=== PATIENT | female | born 1975 | race Caucasian/White ===

== ENCOUNTER → 2016-06-06 | Outpatient (CLI) | payer BC ==
--- NOTE | 2016-06-06 15:51 | RAD ---
Exam performed: Right upper quadrant ultrasound. History: Nausea vomiting and diarrhea for several months with recent worsening. Date of service: 06/06/16. Comparison: None available Technique: Real-time grayscale imaging of the right upper abdomen is performed and images are obtained. Findings: The liver demonstrates diffuse hepatic steatosis and measures 18.2 cm in length. There is mild intrahepatic biliary ductal dilatation. The common bile duct measures 8.0 mm. Gallbladder appears somewhat contracted despite patient being nothing by mouth. There is no cholelithiasis. Echogenic non-shadowing foci are seen in the gallbladder probably polyps. There is biliary sludge. No pericholecystic fluid or gallbladder wall thickening seen. Sonographic Montano sign is present. The right kidney measures 9.9 x 5.6 x 4.7 cm. There is no hydronephrosis or nephrolithiasis. Suboptimal evaluation of the pancreas due to overlying bowel gas. The visualized IVC appears normal. Impression: Gallbladder polyp with sludge and positive sonographic Montano's sign. Findings may be related to acute cholecystitis. Diffuse hepatic steatosis with mild dilation of the common bile duct. A distal obstructing calculus is not excluded.
== END | disposition home or self-care (01) ==
LOC: US 14:26
PROVIDERS: ATTEND Obstetrics & Gynecology
DX: R10.11 Right upper quadrant pain (principal); R11.2 Nausea with vomiting, unspecified; R19.7 Diarrhea, unspecified
CPT/HCPCS: 76705

== ENCOUNTER 2016-06-12 09:32 | Day surgery (SDC) | payer BC ==
[~2016-06-12] VITALS: Ht 162.6 cm; Wt 106.1 kg
[~2016-06-12 09:32] MED LIST: CEFAZOLIN 2GM PREMIX 50 ML IV PRN; FENTANYL PF 100 MCG/2 ML VIAL. IV PRN; HYDR-2762 PO; HYDROMORPHONE 2 MG/ML VIAL. IV PRN; IRON28TA2 PO; IV RINGERS,LACTATED 1000ML 1,000 ML IV SCH; LIDOCAINE 1% 1 ML SYRINGE. ID PRN; ONDANSETRON PF 4 MG/2 ML VIAL. IV PRN; PROCHLORPERAZINE 10 MG/2 ML VIAL. IV PRN; ROPI1TAB PO
[2016-06-12 10:01] LABS: NEG OBC UR NEG; POS OBC UR POS
[2016-06-12 10:35] LABS: BASO # 0.1 x10^3/uL (0.0-0.2); BASO % 1 % (0-3); EOS % 2 % (0-3); HEMATOCRIT 37.4 % (36.0-47.0); LYMPH # 2.5 x10^3/uL (1.0-4.8); LYMPH % 29 % (24-48); MEAN CORPUSCULAR HEMOGLOBIN 25 pg (25-35); MEAN CORPUSCULAR HGB CONC 32 g/dL (31-37); MEAN CORPUSCULAR VOLUME 77 fL (79-100); MONO % 6 % (0-9); NEUT % 63 % (31-73); PLATELET COUNT 258 x10^3/uL (140-400); RED BLOOD COUNT 4.86 x10^6/uL (3.50-5.40); RED CELL DISTRIBUTION WIDTH 15.8 % (11.5-14.5); WHITE BLOOD COUNT 8.5 x10^3/uL (4.0-11.0)
[2016-06-12 10:43] LABS: CALCIUM 9.1 mg/dL (8.5-10.1); CREATININE 0.7 mg/dL (0.6-1.0); GFR 93.2; POTASSIUM 3.9 mmol/L (3.5-5.1)
[2016-06-12 10:49] LABS: ALBUMIN 3.6 g/dL (3.4-5.0); ALBUMIN/GLOBULIN RATIO 0.9 (1.0-1.7); TOTAL BILIRUBIN 0.4 mg/dL (0.2-1.0); TOTAL PROTEIN 7.5 g/dL (6.4-8.2)
[2016-06-12] MEDS ORDERED: IOHEXOL 300 MG/ML 50 ML VIAL. ONE (11:19)
[2016-06-12] MEDS ORDERED: BUPIVAC MPF-EPI 0.5%-1:200000 30 ML VIAL. ONE (11:19)
[2016-06-12] MEDS ORDERED: MIDAZOLAM HCL 2 MG/2 ML VIAL. ONE (11:27)
[2016-06-12] MEDS ORDERED: FENTANYL PF 250 MCG/5 ML VIAL. ONE (11:27)
[2016-06-12] MEDS ORDERED: ROCURONIUM 50 MG/5 ML VIAL. ONE (11:28)
--- NOTE | 2016-06-12 12:24 | RAD ---
EXAM: Intraoperative cholangiogram. HISTORY: Intraoperative cholangiogram. COMPARISON: None. FINDINGS: 2 fluoroscopic images are obtained intraoperatively during injection of the cystic duct remnant after cholecystectomy. There are no filling defects to suggest retained stones. The common duct is not dilated. Fluoroscopy time 16 seconds. IMPRESSION: No evidence of retained stones.
[2016-06-12] MEDS ORDERED: LIDOCAINE 2% 100 MG/5 ML DISP.SYRIN. ONE (12:28)
[2016-06-12] MEDS ORDERED: DEXAMETHASONE SOD PHOS 20 MG/5 ML VIAL. ONE (12:29)
[2016-06-12] MEDS ORDERED: ONDANSETRON PF 4 MG/2 ML VIAL. ONE (12:29)
[2016-06-12] MEDS ORDERED: DESFLURANE 61 TO 120 MINUTES IH ONE (12:29)
[2016-06-12] MEDS ORDERED: DESFLURANE > 120 MINUTES IH ONE (12:29)
[2016-06-12] MEDS ORDERED: PROPOFOL 20 ML IV ONE (12:29)
[2016-06-12] MEDS ORDERED: GLYCOPYRROLATE 1 MG/5 ML VIAL. ONE (12:31)
[2016-06-12] MEDS ORDERED: NEOSTIGMINE METHYLSULFATE 5 MG/5 ML SYRINGE. ONE (12:31)
--- NOTE | 2016-06-12 12:41 | DISCH ---
DISCHARGE INSTRUCTIONS Condition on Discharge Condition on Discharge: Stable Activity After Discharge Activity Instructions for Disc: Other, see below (No lifting over 20 lbs X 2 weeks) Diet after Discharge Diet after Discharge: Regular Wound Incision Care Wound/Incision Care: Other, see below (may remove bandaids tomorrow and shower) Follow-Up Follow up with: Dr Carpenter in 2 weeks in office, call for appt [phone] RAJEEV CARPENTER MD Jun 12, 2016 12:41
--- NOTE | 2016-06-12 12:44 | PDOC4 ---
Operative Note Operative Note Operative Note: Preoperative Diagnosis: Gallbladder polyp and sludge Postoperative Diagnosis: Same Procedure: Laparoscopic cholecystectomy with intraoperative cholangiogram Surgeons: Gustavo Gang Saw Operator: JODY Green Anesthesia: Gen. Estimated Blood Loss: 10 mL Specimen: Gallbladder to pathology Drains: None Complications: None Indications: The patient is a 41-year-old female who is been experiencing recurrent upper abdominal pain. She underwent evaluation for this including a sonogram showed gallbladder sludge, a polyp, and Montano sign consistent with possible cholecystitis. Surgical treatment was offered by means of a laparoscopic cholecystectomy. The risks of surgery were discussed which include bleeding, infection, bile duct injury, bile leak, pain, the potential for additional surgeries or procedures. The patient understands and would like to proceed. Description: The patient was taken to the operating room and laid supine on the operating table. General anesthesia was performed. The abdomen was prepped with ChloraPrep and draped in a standard surgical fashion. A small supraumbilical incision was made with a scalpel. The Veress needle was then inserted and a pneumoperitoneum was then created. A 5 mm trocar was then inserted and the laparoscope was introduced. In the upper midabdomen a 5 mm trocar was inserted and in the right upper quadrant two 2.3 mm mini lap graspers were inserted. The gallbladder was retracted cephalad. The cystic duct was dissected free from surrounding tissues. One clip was placed on the duct near the gallbladder junction. An opening was made in the duct and a cholangiocatheter placed within and secured with a clip. Using contrast dye and fluoroscopy an intraoperative cholangiogram was performed that appeared unremarkable. The clip and catheter were then withdrawn. Three clips were placed on the cystic duct and it was divided. The cystic artery was then identified, dissected free, doubly clipped and divided as well. The gallbladder was then mobilized away from the liver with cautery. The umbilical 5 millimeter trocar was exchanged for an 11 millimeter trocar. The gallbladder was then placed in an endoscopic bag and extracted at the umbilical trocar site. The fascia there was closed with an 0 Vicryl suture. All blood and irrigation fluid was suctioned and hemostasis was good. The remaining ports were removed and the pneumoperitoneum was relieved. The skin incisions were injected with half percent Marcaine with epinephrine, and all were closed using 4-0 Monocryl suture. Steri-Strips and dressings were then applied. The patient tolerated the procedure well and was sent to the recovery room in stable condition. At the end of the case all counts were correct. RAJEEV CARPENTER MD Jun 12, 2016 12:44
[2016-06-12] MEDS: FENTANYL PF 100 MCG/2 ML VIAL. IV PRN ×2 (12:55→13:05)
[2016-06-12] MEDS: MORPHINE SULFATE 2 MG/ML DISP.SYRIN. IV PRN ×2 (13:15→13:25)
[2016-06-12] MEDS ORDERED: OXYC-323 PO (13:34)
[2016-06-12] MEDS ORDERED: ONDA4TAB10 SL (13:36)
[2016-06-12] MEDS ORDERED: OXYCODONE/APAP 5/325 TABLET. PO PRN (13:45)
[2016-06-12 14:19] VITALS: BP 112/65
--- NOTE | 2016-06-12 21:59 | ACF ---
Admission Forms Criteria GALLBLADDER OR BILE DUCT INFLAMMATION OR STONE Clinical Indications for Admission to Inpatient Care ( Place 'X' for any and all applicable criteria): Admission is indicated for patients with ANY ONE of the following(1)(2)(3)(4)(5) : [ ]I. Acute cholecystitis as indicated by ALL of the following: [ ]a) Right upper quadrant pain, mass, or tenderness [ ]b) Systemic signs of inflammation indicated by ANY ONE of the following: [ ]i) Fever [ ]ii) C-reactive protein level greater than 10 mg/L (95 nmol/L) [ ]iii) White blood cell count greater than 10,000/mm3 (10 x109/L) or less than 4000/mm3 (4 x109/L) [X]II. Inpatient admission required rather than observation care (Also use Gallbladder or Bile Duct Inflammation or Stone: Observation Care as appropriate) because of ANY ONE of the following: [ ]a) Common bile duct obstruction diagnosed [ ]b) Vomiting that is severe or persistent [ ]c) Severe pain requiring acute inpatient management [ ]d) Signs of intestinal obstruction or peritonitis [A] [ ]e) Severe electrolyte abnormalities requiring inpatient care [ ]f) Absent bowel sounds with complete ileus(8) [ ]g) Hemodynamic instability [ ]h) High fever or infection requiring inpatient admission as indicated by ANY ONE of the following (9): [ ]1) Appropriate outpatient or observation care antimicrobial Treatment. unavailable, not effective, or not feasible [ ]2) Temperature greater than 104.9 degrees F (40.5 degrees C) (oral) [ ]3) Temperature greater than 103.1 degrees F (39.5 degrees C) (oral) or less than 96.8 degrees F (36 degrees C) (rectal) that does not respond to all emergency treatment measures [ ]4) Documented bacteremia [ ]i) IV fluid to replace significant ongoing losses (greater than 3 L/m2 per day) [ ]j) Percutaneous or open drainage (eg, abscess, biliary tract) procedures [X]k) Immediate inpatient surgery [ ]l) Other condition, treatment or monitoring requiring inpatient admission [ ]III. Acute cholangitis as indicated by ALL of the following(9)(10): [ ]a) Systemic signs of inflammation indicated by ANY ONE of the following: [ ]i) Fever [ ]ii) C-reactive protein level greater than 10 mg/L (95 nmol /L) [ ]iii) White blood cell count greater than 10,000/mm3 (10 x109/L) or less than 4000/mm3 (4 x109/L) [ ]b) Evidence of common bile duct disease indicated by ANY ONE of the following: [ ]i) Total serum bilirubin level greater than or equal to 2 mg/dL (34 micromoles/L) [ ]ii) Liver function test (alkaline phosphatase (ALP), r- glutamyltransferase (GGT), aspartate aminotransferase (AST), or alanine aminotransferase (ALT)) greater than 1.5 times the upper limit of normal[B] [ ]iii) Hepatobiliary imaging showing biliary dilatation or evidence of etiology (eg, stricture, stone, previously placed stent) Extended stay beyond goal length of stay may be needed for (1)(2)): [ ]a) Bacteremia or Hemodynamic instability [ ]b) Cholecystectomy [ ]c) Other surgical procedure(24) [ ]d) Percutaneous or endoscopic ultrasound-guided cholecystostomy The original [facility] content created by [facility] has been revised. The portions of the content which have been revised are identified through the use of italic text or in bold, and [facility] has neither reviewed nor approved the modified material. All other unmodified content is copyright [facility]. Please see references footnoted in the original [facility] edition 2016 Admission Criteria Met?: Yes ALYX JO Jun 12, 2016 21:59
--- NOTE | 2016-06-13 13:38 | PATHOLOGY ---
PATHOLOGY REPORT * * * * * * * * FINAL DIAGNOSIS: Gallbladder, laparoscopic cholecystectomy: - Cholelithiasis. - Chronic cholecystitis. COMMENT: There are no polyps. There is no evidence of malignancy. (HORACIOM:; d/t: 06/13/16) REPORT ELECTRONICALLY SIGNED BY: Nelson Wheeler M.D. DATE/TIME: 06/13/2016 13:37 * * * * * * * * GROSS PATHOLOGY: Received in formalin labeled "Shanice Cross and gallbladder with contents," is an 8.3 x 3.8 x 3.3 cm, intact gallbladder with pink-mccray, diffusely hemorrhagic, and wrinkled serosal surfaces. Opening the gallbladder reveals bright red to light green and granular mucosa and an average wall thickness of 0.1 cm. Multiple black and friable calculi range from 0.1-0.3 cm in greatest dimension are present and no masses/polyps are noted grossly. [employer] sections from the body and fundus are submitted along with the proximal margin in cassette A1. (TTL; 06/12/2016) INITIAL CPT CODE(S): A; 41089 Professional services [place] [address] Technical services performed by [employer] at [address] [place] [address] [address] [place] [address]. SPECIMEN(S) RECEIVED: A.Gallbladder and contents CLINICAL HISTORY: Gallbladder sludge and polyp PATIENT: SHANICE CROSS /AGE: 1204/02/1975 (Age: 41) PATIENT #: [id number] ALT CASE #: SPECIMEN COLLECTION DATE: 06/12/2016 SPECIMEN RECEIVED DATE: 06/12/2016 [facility] - [id number] [place] [address] - PHONE: [phone] * * * END OF REPORT * * *
== END 2016-06-12 14:48 | disposition home or self-care (01) ==
LOC: SURG 09:32
PROVIDERS: ATTEND Surgery
DX: K80.10 Calculus of gallbladder with chronic cholecystitis without obstruction (principal); K82.4 Cholesterolosis of gallbladder; E66.9 Obesity, unspecified; Z87.39 Personal history of other diseases of the musculoskeletal system and connective tissue; Z72.89 Other problems related to lifestyle
CPT/HCPCS: 36415; 47563; 74300; 80053; 81025; 85027; C1769; C1782; J0690; J1100; J2250; J2270; J2405; J2704; J2710; J3010; J3490; J7030; Q9967; 88304